=== PATIENT | female | born 1955 | race Caucasian/White ===

== ENCOUNTER 2017-03-26 07:43 | Emergency (ER) | payer OTHER ==
[~2017-03-26] VITALS: Ht 167.6 cm; Wt 72.6 kg
--- NOTE | 2017-03-26 07:48 | ED GENERAL ADULT ---
History of Present Illness General Chief Complaint: Fall Stated Complaint: RAPID RESPONSE S/P FALL Source: patient Exam Limitations: no limitations Vital Signs & Intake/Output Vital Signs & Intake/Output Vital Signs Date Time Temp Pulse Resp B/P B/P Pulse O2 O2 Flow FiO2 Mean Ox Delivery Rate 03/26 930 98.2 97 16 162/83 98 Room Air 03/26 0824 99 166/77 03/26 0810 99 194/99 03/26 0809 99 194/99 03/26 0752 Room Air 03/26 0744 96.6 99 20 194/99 98 Room Air Allergies Coded Allergies: No Known Allergies (03/26/17) Reconcile Medications Amlodipine Besylate 5 MG TABLET 1 TAB PO DAILY HEART (Reported) Carbidopa/Levodopa (Carbidopa-Levodopa 25-100 Tab) 25 MG-100 MG TABLET 1 TAB PO TID PARKINSONS (Reported) Irbesartan/Hydrochlorothiazide (Irbesartan-Hctz 150-12.5 MG Tb) 150 MG-12.5 MG TABLET 1 TAB PO DAILY HEART (Reported) Ropinirole HCl (Requip) 4 MG TABLET 1 TAB PO QPM PARKINSONS (Reported) Triage Nurses Notes Reviewed? yes Onset: Abrupt Duration: hour(s): Timing: recent history HPI: 03/26/17 8 AM This is a hellen 61-year-old female presents to the emergency department for head injury. The patient was visiting a family member and bent over and tripped and hit her head. She also injured her left knee. The onset of the symptoms was abrupt, the duration was just today, the severity was significant; as her symptoms required her to come to the emergency department for care. She is not on any anticoagulants. She denies chest pain shortness of breath or other complaints. She does have a history of Parkinson's disease with an underlying gait disturbance. She usually ambulates with a walker. On physical exam she does have soft tissue swelling and hematoma on the right side of her forehead. The neck has normal range of motion and is nontender. She has no neck pain or tenderness. Secondary survey is completely normal. She has no tenderness or decreased range of motion to the left knee. Past History Travel History Traveled to [place] past 21 day No Medical History Any Pertinent Medical History? see below for history Neurological: Parkinson's disease Surgical History Surgical History: non-contributory Family History Hx Contributory? No Review of Systems Review of Systems Constitutional: Denies: fever. EENTM: Denies: visual changes. Respiratory: Denies: short of breath. Cardiovascular: Denies: chest pain. GI: Denies: abdominal pain. Genitourinary: Reports: no symptoms. Musculoskeletal: Reports: joint pain (left knee). Skin: Reports: no symptoms. Neurological/Psychological: Reports: headache. Hematologic/Endocrine: Reports: bruising. Denies: bleeding. Physical Exam Physical Exam General Appearance: alert, awake, anxious, mild distress Head: swelling Eyes: Bilateral: normal appearance, PERRL, EOMI. Ears, Nose, Throat: normal ENT inspection Neck: supple, full range of motion Respiratory: chest non-tender, no respiratory distress Cardiovascular: regular rate/rhythm Peripheral Pulses: 4+ radial (R), 4+ radial (L) Gastrointestinal: soft, non-tender Back: normal range of motion Extremities: no tenderness to left knee or hips Neurologic/Psych: no motor/sensory deficits, awake, alert, oriented x 3, normal gait Skin: intact, normal color, warm/dry Core Measures ACS in differential dx? No CVA/TIA Diagnosis: No Severe Sepsis Present: No Septic Shock Present: No Progress Differential Diagnoses I considered the following diagnoses in my evaluation of the patient: [Skull fracture, intracranial bleed, concussion, other occult injuries] Plan of Care: Orders Procedure Date/time Status EKG 03/26 826 Active EKG 03/26 753 Active Initial ED EKG: NSR, motion artifact, NSTW ABNORMAILITY Departure Departure Disposition: HOME OR SELF CARE Condition: Stable Clinical Impression Primary Impression: Contusion Secondary Impressions: Head injury Referrals: UNKNOWN Departure Forms: Customer Survey General Discharge Information Comments 03/26/17 9:30 AM The patient has no complaints in the Emergency Department at this time. CT scan of the head was negative for intracranial bleed or skull fracture. She is ambulating without difficulty. Her EKG had motion artifact. I had the tracing reviewed with Dr. Day and we are in agreement that is normal sinus rhythm. Her heart rate is regular. She was discharged and instructed to take her antihypertensive medication as directed Critical Care Note Critical Care Note Critical Care Time: non-applicable
--- NOTE | 2017-03-26 08:22 | CT SCAN REPORT ---
EXAMINATION: CT HEAD WITHOUT CONTRAST CLINICAL INFORMATION: Head injury COMPARISON: None TECHNIQUE: Contiguous axial imaging was performed from the skull base to vertex without intravenous administration of contrast. DLP: 545 mGy-cm FINDINGS: There is no evidence of acute intracranial hemorrhage or territorial infarction. No abnormal mass effect or midline shift is seen. Simental to white matter differentiation is well preserved. No extra-axial fluid collections are identified. The ventricles are normal in size. Multiple areas of hypoattenuation in the subcortical and periventricular white matter are present, most commonly attributable to chronic microangiopathic changes. Foci of hypoattenuation in the basal ganglia bilaterally at the level of the anterior commissure most likely correspond to perivascular spaces. Minimal calcific atherosclerosis is present within the cavernous segments of the internal carotid arteries. There is a contusion over the right supraorbital frontal bone with a thin subgaleal hematoma measuring 0.4 cm in greatest thickness. No underlying fractures. The osseous structures and soft tissues are otherwise normal. The mastoid air cells and visualized portions of the paranasal sinuses are well aerated. IMPRESSION: No acute intracranial pathology. Thinned subgaleal hematoma over the right frontal bone. No underlying fracture. Mild/moderate chronic microangiopathic white matter changes
[2017-03-26] MEDS ORDERED: AMLODIPINE BESYL5 M1 PO (08:28)
[2017-03-26] MEDS ORDERED: IRBESARTAN-HCT1 EACH PO (08:28)
[2017-03-26] MEDS ORDERED: CARBIDOPA-LEVO1 EAC7 PO (08:29)
[2017-03-26] MEDS ORDERED: REQUIP4 MG PO (08:30)
[2017-03-26 09:30] VITALS: BP 162/83
== END 2017-03-26 09:37 ==
LOC: ERH 07:43
DX: S09.90XA Unspecified injury of head, initial encounter (principal); S00.83XA Contusion of other part of head, initial encounter; G20 Parkinson's disease; W01.0XXA Fall on same level from slipping, tripping and stumbling without subsequent striking against object, initial encounter; Y93.89 Activity, other specified; Y92.9 Unspecified place or not applicable
CPT/HCPCS: 93005; 93010